=== PATIENT | female | born 1945 | race Caucasian/White ===

== ENCOUNTER 2020-11-19 06:00 | Day surgery (SDC) | payer OTHER ==
[~2020-11-19 06:00] MED LIST: SYNTHROID75 MCG PO
[2020-11-19] MEDS ORDERED: Tylenol #3 PO (09:27)
[2020-11-19] MEDS ORDERED: MORGIDOX100 MG PO (09:27)
== END 2020-11-19 14:30 | disposition home or self-care (01) ==
LOC: CIR.AMB 06:00
PROVIDERS: ATTEND Obstetrics & Gynecology
DX: D25.0 Submucous leiomyoma of uterus (principal); N84.0 Polyp of corpus uteri